=== PATIENT | female | born 1970 | race Caucasian/White ===

== ENCOUNTER 2018-11-20 18:46 | Emergency (ER) | payer BC ==
[~2018-11-20] VITALS: Ht 162.6 cm; Wt 65.8 kg
== END 2018-11-20 22:31 | disposition home or self-care (01) ==
LOC: ER 18:46
DX: O20.8 Other hemorrhage in early pregnancy (principal); O43.891 Other placental disorders, first trimester; Z34.01 Encounter for supervision of normal first pregnancy, first trimester